=== PATIENT | female | born 1995 | race Caucasian/White ===

== ENCOUNTER 2018-03-10 17:30 | Emergency (ER) | payer OTHER ==
--- NOTE | 2018-03-10 18:32 | ER Document Report ---
ED Medical Screen (RME) - General Chief Complaint: Vag Bleeding, +preg <12wks Stated Complaint: VAGINAL BLEEDING Time Seen by Provider: 03/10/18 18:25 Notes: 22-year-old female patient is A1 10 weeks . At 5 PM today she started having pelvic cramps with vaginal bleeding like a period. She had an ultrasound at 6 weeks at [facility]. I have greeted and performed a rapid initial assessment of this patient. A comprehensive ED assessment and evaluation of the patient, analysis of test results and completion of the medical decision making process will be conducted by additional ED providers. TRAVEL OUTSIDE OF THE [place] IN LAST 30 DAYS: No - Related Data Allergies/Adverse Reactions: No Known Allergies Allergy (Unverified 03/10/18 17:43) Past Medical History - Social History Chew tobacco use (# tins/day): No Frequency of alcohol use: None Drug Abuse: None Renal/ Medical History: Denies: Hx Peritoneal Dialysis Physical Exam - Vital signs Vitals: Temp Pulse Resp BP Pulse Ox 98.3 F 63 16 99/55 L 100 03/10/18 18:14 03/10/18 18:14 03/10/18 18:14 03/10/18 18:14 03/10/18 18:14 Course - Vital Signs Vital signs: Temp Pulse Resp BP Pulse Ox 98.3 F 63 16 99/55 L 100 03/10/18 18:14 03/10/18 18:14 03/10/18 18:14 03/10/18 18:14 03/10/18 18:14
[2018-03-10 18:44] LABS: ABSOLUTE BASOPHILS # (AUTO) 0.1 10^3/uL (0.0-0.2); ABSOLUTE EOSINOPHILS # (AUTO) 0.2 10^3/uL (0.0-0.6); ABSOLUTE LYMPHOCYTES (AUTO) 2.6 10^3/uL (0.5-4.7); ABSOLUTE MONOCYTES (AUTO) 0.7 10^3/uL (0.1-1.4); ABSOLUTE NEUT (AUTO) 7.7 10^3/uL (1.7-8.2); BASOPHILS % (AUTO) 0.6 % (0-2); EOSINOPHILS % (AUTO) 1.9 % (0-6); HEMATOCRIT 35.5 % (36.0-47.0); HEMOGLOBIN 12.2 g/dL (12.0-15.5); LYMPHOCYTES % (AUTO) 22.8 % (13-45); MEAN CORPUSCULAR HEMOGLOBIN 30.8 pg (27.0-33.4); MEAN CORPUSCULAR HGB CONC 34.2 g/dL (32.0-36.0); MEAN CORPUSCULAR VOLUME 90 fl (80-97); MONOCYTES % (AUTO) 6.3 % (3-13); PLATELET COUNT 196 10^3/uL (150-450); RED BLOOD COUNT 3.95 10^6/uL (3.72-5.28); RED CELL DISTRIBUTION WIDTH 13.2 % (11.5-14.0); SEGMENTED NEUTROPHILS % (AUTO) 68.4 % (42-78); TOTAL CELLS COUNTED % (AUTO) 100 %; WHITE BLOOD COUNT 11.2 10^3/uL (4.0-10.5)
--- NOTE | 2018-03-10 21:18 | RADIOLOGY REPORT (SQ) ---
EXAM DESCRIPTION: US TRANSVAGINAL COMPLETED DATE/TME: 03/10/2018 18:31 CLINICAL HISTORY: 22 years Female 10wks, cramps, bleeding COMPARISON: None. TECHNIQUE: Transabdominal duplex imaging performed to evaluate the pelvis. FINDINGS: The uterus measures 11 x 5.2 x 9 cm. There is an intrauterine gestational sac. pole measures 3.5 cm. heart rate 158 bpm. Unremarkable right ovary and left ovary with normal flow. Cervix measures 2.7 cm. There appears to be some possible funneling along the internal os. Recommend follow-up. IMPRESSION: Small amount of funneling may be present along the internal os. Recommend close interval follow-up Living IUP corresponding to 10 weeks two days
--- NOTE | 2018-03-10 21:35 | ER Document Report ---
ED GI/ - General Chief Complaint: Vag Bleeding, +preg <12wks Stated Complaint: VAGINAL BLEEDING Time Seen by Provider: 03/10/18 18:25 Notes: Patient is a 22-year-old female, at 10 weeks gestation by first trimester ultrasound, the comes emergency department for chief complaint of mild cramping and vaginal bleeding with spotting that started during the afternoon. She denies trauma. She denies any current pain, she denies flank pain, dizziness, fever, vaginal discharge, dysuria. She is on Diclegis, states this is working well. She denies any medical history otherwise. TRAVEL OUTSIDE OF THE [place] IN LAST 30 DAYS: No - Related Data Allergies/Adverse Reactions: No Known Allergies Allergy (Unverified 03/10/18 17:43) Past Medical History - General Information source: Patient - Social History Smoking Status: Former Smoker Chew tobacco use (# tins/day): No Frequency of alcohol use: None Drug Abuse: None Lives with: Family Family History: Reviewed & Not Pertinent Patient has suicidal ideation: No Patient has homicidal ideation: No - Medical History Medical History: Negative Renal/ Medical History: Denies: Hx Peritoneal Dialysis Surgical Hx: Negative - Immunizations Immunizations up to date: Yes Hx Diphtheria, Pertussis, Tetanus Vaccination: Yes Review of Systems - Review of Systems Constitutional: No symptoms reported EENT: No symptoms reported Cardiovascular: No symptoms reported Respiratory: No symptoms reported Gastrointestinal: See HPI Genitourinary: No symptoms reported Female Genitourinary: See HPI Musculoskeletal: No symptoms reported Skin: No symptoms reported Hematologic/Lymphatic: No symptoms reported Neurological/Psychological: No symptoms reported Physical Exam - Vital signs Vitals: Temp Pulse Resp BP Pulse Ox 98.3 F 63 16 99/55 L 100 03/10/18 18:14 03/10/18 18:14 03/10/18 18:14 03/10/18 18:14 03/10/18 18:14 - Notes Notes: GENERAL: Alert, interacts well. No acute distress. HEAD: Normocephalic, atraumatic. EYES: Pupils equal, round, and reactive to light. Extraocular movements intact. ENT: Oral mucosa moist, tongue midline. Oropharynx unremarkable. Airway patent. Nares patent, no nasal septal hematoma, TM's intact. NECK: Full range of motion. Supple. Trachea midline. LUNGS: Clear to auscultation bilaterally, no wheezes, rales, or rhonchi. No respiratory distress. HEART: Regular rate and rhythm. No murmur ABDOMEN: Soft, non-tender. Non-distended. Bowel sounds present in all 4 quadrants. GENITOURINARY: Deferred EXTREMITIES: Moves all 4 extremities spontaneously. No edema, normal radial and dorsalis pedis pulses bilaterally. No cyanosis. BACK: no cervical, thoracic, lumbar midline tenderness. No saddle anesthesia, normal distal neurovascular exam. NEUROLOGICAL: Alert and oriented x3. Normal speech. [cranial nerves II through XII grossly intact]. PSYCH: Normal affect, normal mood. SKIN: Warm, dry, normal turgor. No rashes or lesions noted. Course - Re-evaluation Re-evalutation: Patient alert, well-appearing, soft abdomen, no current complaints on my evaluation. No significant heavy bleeding. CBC unremarkable. RhoGam is not indicated. HCG elevated as expected. Borderline hypotension, however patient is tiny, she denies lightheadedness or dizziness, I suspect this is her baseline. No tachycardia. Ultrasound read shows living IUP. Questionable small amount of funneling of the cervix. No acute findings otherwise. Recommends close follow-up. Reevaluated patient at bedside. No additional symptoms. Because patient is asymptomatic no additional tests were run, I discussed patient's report in great detail, discussed possible outcomes and that at this time it was uncertain whether she would miscarry or this would progressed normally. Patient is already established with [facility] and states she has good follow-up ability. Patient states she will be seen in close follow-up, discussed pelvic precautions, discussed return precautions in detail with patient and significant other. They state understanding and agreement with plan. Stable time of discharge. - Vital Signs Vital signs: Temp Pulse Resp BP Pulse Ox 97.7 F 60 16 94/49 L 100 03/10/18 21:50 03/10/18 21:50 03/10/18 21:50 03/10/18 21:50 03/10/18 21:50 - Laboratory Result Diagrams: 03/10/18 18:35 Laboratory results interpreted by me: 03/10/18 03/10/18 18:35 18:35 WBC 11.2 H Hct 35.5 L Beta HCG, Quant 836233.00 H Discharge - Discharge Clinical Impression: Vaginal bleeding affecting early Condition: Stable Disposition: HOME, SELF-CARE Additional Instructions: At this time the appears normal in the uterus although there is a questionable appearance of the cervix. This could mean that the cervix opens and you progress to a miscarriage, this could also be normal. Observe pelvic rest (avoid jumping, running, lifting, sexual intercourse, etc. until cleared by [facility]). Call tomorrow to establish a very close follow-up with your [facility] for additional evaluation and management. Return if you worsen including severe pain, heavy bleeding, dizziness, passing out, or any other concerning or worsening symptoms. Forms: Return to Work
[2018-03-11 03:20] VITALS: BP 94/49
== END 2018-03-10 21:50 | disposition home or self-care (01) ==
LOC: ER 17:30
DX: O20.9 Hemorrhage in early pregnancy, unspecified (principal); Z3A.10 10 weeks gestation of pregnancy; Z79.899 Other long term (current) drug therapy; Z87.891 Personal history of nicotine dependence
CPT/HCPCS: 36415; 76817; 84702; 85025; 86900; 86901; 99284